=== PATIENT | female | born 1930 | race Caucasian/White ===

== ENCOUNTER 2017-03-09 03:59 | Observation (INO) ==
[2017-03-09] MEDS ORDERED: 0.9 % Sodium Chloride 1,000 ML IVC ONE (04:13)
[2017-03-09] MEDS ORDERED: Ondansetron 4 MG/2 ML VIAL IVP ONE (04:13)
[2017-03-09] MEDS ORDERED: *HR* Morphine 2 MG/ML SYRINGE IVP ONE (04:13)
--- NOTE | 2017-03-09 04:16 | Emergency Department Note ---
Disposition Clinical Impression: Intractable vomiting with nausea Qualifiers: Vomiting type: unspecified Qualified Code(s): R11.2 - Nausea with vomiting, unspecified Pneumonia Qualifiers: Pneumonia type: aspiration pneumonia Aspiration pneumonia type: due to vomit Laterality: bilateral Lung location: unspecified part of lung Qualified Code(s) : J69.0 - Pneumonitis due to inhalation of food and vomit Disposition: Admitted As Inpatient Condition: Good Referrals: NO,PCP [Primary Care Provider] - Forms: ED Satisfaction Letter Time of Disposition: 05:15 Nausea/Vomiting/Diarrhea HPI - General Chief complaint: ED Nausea/Vomiting/Diarrhea Stated complaint: vomiting Source: patient Limitations: no limitations - History of Present Illness HPI Narrative: Patient presents to the emergency department from home via EMS secondary to vomiting. She states that she began to have emesis approximately 5-6 hours ago without inciting incident or injury. She states she has had multiple episodes of emesis since. She denies hematemesis. She states that she had some mild lower abdominal pain following one episode of emesis but that has since resolved. Denies pain currently. She denies diarrhea. She had a bowel movement yesterday. She denies fever or chills. She denies chest pain shortness of breath. She denies urinary symptoms. She denies known sick contacts Pt Subjective Complaint: nausea, vomiting - Related Data Home Medications Medication Instructions Recorded Confirmed Cholecalciferol (Vitamin D3) 1,000 unit PO DAILY 04/24/15 01/17/17 [Vitamin D] Diltiazem CD (24hr) [Cardizem CD] 180 mg PO BID 04/24/15 01/17/17 Gabapentin [Neurontin] 800 mg PO TID 04/24/15 01/17/17 HYDROcodone/Acet 5/325 mg [[place] 1 tab PO Q6HR 04/24/15 01/17/17 5-325 mg] LORazepam [Ativan] 1 mg PO TID 04/24/15 01/17/17 Levothyroxine Sodium [Synthroid] 75 mcg PO DAILY 04/24/15 01/17/17 Omeprazole [PriLOSEC] 40 mg PO DAILY 04/24/15 01/17/17 Simvastatin [Zocor] 40 mg PO HS 04/24/15 01/17/17 Furosemide [Lasix] 40 mg PO DAILY 06/28/15 01/17/17 Warfarin [Coumadin] 2 mg PO 1800 06/28/15 01/17/17 Previous Rx's Medication Instructions Recorded Polyethylene Glycol 3350 [MiraLAX] 17 gm PO DAILY #30 powd.pack 06/14/15 predniSONE [PredniSONE] 10 mg PO DAILY #20 tablet 01/17/17 Allergies Allergy/AdvReac Type Severity Reaction Status Date / Time clarithromycin [From Biaxin] Allergy Hives Verified 01/17/17 11:05 Iodinated Contrast- Oral and Allergy Hives Verified 01/17/17 11:05 IV Dye [Iodinated Contrast Media - IV Dye] metoclopramide Allergy Difficulty Verified 01/17/17 11:05 Breathing Penicillins Allergy Hives Verified 01/17/17 11:05 phenazopyridine Allergy Rash Verified 01/17/17 11:20 [From Pyridium] Sulfa (Sulfonamide Allergy See Verified 01/17/17 11:05 Antibiotics) Comments sulfamethoxazole Allergy Hives Verified 01/17/17 11:05 [From Bactrim] trimethoprim [From Bactrim] Allergy Hives Verified 01/17/17 11:05 Constitutional: Denies: fever, chills, weakness Eyes: Denies: vision change ENT ED: Denies: ear pain Cardiovascular: Denies: chest pain, palpitations, dyspnea on exertion, edema, syncope Respiratory: Denies: cough, dyspnea Gastrointestinal: Reports: as per HPI Genitourinary: Denies: urgency, dysuria, frequency Musculoskeletal: Denies: back pain Integumentary: Denies: rash, abrasion Neurological: Denies: headache, weakness, numbness, paresthesias Endocrine: Denies: fatigue Past Medical History - Past Medical History Medical history: Reports: cancer, DVT, diabetes, GERD, hyperlipidemia, hypertension, thyroid disease Surgical history: Reports: appendectomy, cataract (Lens replacement), hysterectomy, knee replacement (Bilateral), thyroidectomy, other (Exploratory kidney surgery, tonsillectomy/adenoidectomy) Psychiatric history: Reports: anxiety, depression VP INTEGRITY history: Reports: no VP INTEGRITY history - Social History Smoking Status: Never smoker Smokeless Tobacco Status: No Alcohol use: Reports: none Drug use: Reports: none Physical Exam - General Limitations: no limitations General appearance: alert, in no apparent distress (Resting comfortably cooperative and interactive and pleasant) - Head Head exam: atraumatic - Eye Eye exam: Present: normal appearance, PERRL. Absent: scleral icterus, conjunctival injection - ENT ENT exam: mucous membranes dry, TM's normal bilaterally - Neck Neck exam: Present: normal inspection. Absent: meningismus - Respiratory Respiratory exam: Present: normal lung sounds bilaterally - Cardiovascular Cardiovascular exam: Present: regular rate, normal rhythm, normal heart sounds - Abdominal Exam Abdominal exam: Present: soft, Non-Tender, distention, hypoactive bowel sounds ( Bowel sounds are present though high-pitched) - Extremities Exam Extremities exam: Present: normal inspection, full ROM, normal capillary refill. Absent: tenderness, calf tenderness - Back Exam Back exam: Present: normal inspection. Absent: tenderness, CVA tenderness (R), CVA tenderness (L) - Neurological Exam Neurological exam: Present: alert, oriented X3 - Psychiatric Psychiatric exam: Present: normal affect, normal mood - Skin Skin exam: Present: warm, dry, intact, normal color. Absent: rash Course Vital Signs Temperature 98.2 F 03/09/17 04:02 Pulse Rate 86 03/09/17 04:02 Respiratory Rate 18 03/09/17 04:02 Blood Pressure 129/74 03/09/17 04:02 O2 Sat by Pulse Oximetry 94 03/09/17 04:02 Temperature 98.2 F 03/09/17 04:02 Pulse Rate 85 03/09/17 04:57 Respiratory Rate 22 03/09/17 04:57 Blood Pressure 152/59 03/09/17 04:57 O2 Sat by Pulse Oximetry 93 03/09/17 04:57 Oxygen Delivery Oxygen Delivery Room Air Nausea/Vomiting/Diarrhea - Lab Data Lab results reviewed: Yes I reviewed the patient's lab results. Result diagrams: 03/09/17 04:20 03/09/17 04:20 Lab Results 03/09/17 03/09/17 03/09/17 Range/Units 04:20 04:20 04:20 WBC 12.0 H (4.3-11.1) K/mcL RBC 4.10 (3.82-4.97) M/mcL Hgb 12.2 (11.5-15.4) g/dL Hct 38.2 (35.3-44.9) % MCV 93.2 (83.0-100.0) fL MCH 29.8 (28.0-33.3) pg MCHC 31.9 (31.6-35.5) g/dL RDW 13.4 (11.5-14.5) % Plt Count 226 (140-400) K/mcL MPV 10.4 (9.4-12.4) fL Immature Gran % 0.3 (0-4) % Seg Neutrophils % 84.9 % Lymphocytes % 5.7 % Monocytes % 7.7 % Eosinophils % 1.1 % Basophils % 0.3 % Neutrophils # 10.2 H (1.6-8.9) K/mcL Lymphocytes # 0.7 (0.6-4.6) K/mcL Monocytes # 0.9 (0.0-1.3) K/mcL Eosinophils # 0.1 (0.0-0.6) K/mcL Basophils # 0.0 (0.0-0.2) K/mcL PT (9.4-12.1) Seconds INR APTT (26.0-36.0) Seconds Sodium 144 (136-145) mEq/L Potassium 3.5 (3.5-4.5) mEq/L Chloride 106 (98-109) mEq/L Carbon Dioxide 24 (19-29) mEq/L BUN 18 (7-20) mg/dL Creatinine 0.82 (0.57-1.11) mg/dL Est GFR ( Amer) > 60 (> 60) Est GFR (Non-Af Amer) > 60 (> 60) BUN/Creatinine Ratio 22 (6-26) Glucose 171 H (70-99) mg/dL Calculated Osmolality 304 H (280-300) Calcium 9.6 (8.6-10.8) mg/dL Total Bilirubin 0.4 (0.2-1.2) mg/dL AST 27 (5-34) Units/L ALT 21 (0-55) Units/L Alkaline Phosphatase 95 (38-126) Units/L Troponin I 0.02 (0-0.03) ng/mL Serum Total Protein 6.6 (6.0-8.3) g/dL Albumin 3.7 (3.5-5.0) g/dL Globulin 2.9 (2.4-3.5) g/dL Albumin/Globulin Ratio 1.3 (1.1-2.2) Lipase 20 (8-78) Units/L 03/09/17 Range/Units 04:20 WBC (4.3-11.1) K/mcL RBC (3.82-4.97) M/mcL Hgb (11.5-15.4) g/dL Hct (35.3-44.9) % MCV (83.0-100.0) fL MCH (28.0-33.3) pg MCHC (31.6-35.5) g/dL RDW (11.5-14.5) % Plt Count (140-400) K/mcL MPV (9.4-12.4) fL Immature Gran % (0-4) % Seg Neutrophils % % Lymphocytes % % Monocytes % % Eosinophils % % Basophils % % Neutrophils # (1.6-8.9) K/mcL Lymphocytes # (0.6-4.6) K/mcL Monocytes # (0.0-1.3) K/mcL Eosinophils # (0.0-0.6) K/mcL Basophils # (0.0-0.2) K/mcL PT 20.2 H (9.4-12.1) Seconds INR 1.8 APTT 39.0 H (26.0-36.0) Seconds Sodium (136-145) mEq/L Potassium (3.5-4.5) mEq/L Chloride (98-109) mEq/L Carbon Dioxide (19-29) mEq/L BUN (7-20) mg/dL Creatinine (0.57-1.11) mg/dL Est GFR ( Amer) (> 60) Est GFR (Non-Af Amer) (> 60) BUN/Creatinine Ratio (6-26) Glucose (70-99) mg/dL Calculated Osmolality (280-300) Calcium (8.6-10.8) mg/dL Total Bilirubin (0.2-1.2) mg/dL AST (5-34) Units/L ALT (0-55) Units/L Alkaline Phosphatase (38-126) Units/L Troponin I (0-0.03) ng/mL Serum Total Protein (6.0-8.3) g/dL Albumin (3.5-5.0) g/dL Globulin (2.4-3.5) g/dL Albumin/Globulin Ratio (1.1-2.2) Lipase (8-78) Units/L ITS Impressions Abdomen/Pelvis CT 03/09/17 04:14 IMPRESSION: Multiple dilated loops of small bowel in the mid abdomen with wall thickening and mesenteric hyperemia suggesting an acute enteritis. No evidence of transition point to suggest a bowel obstruction. Diverticulosis without CT evidence acute diverticulitis. Patchy ground-glass and tree-in-bud opacities noted in both lung bases suggesting an acute infectious/ inflammatory processes atypical pneumonia. Aspiration pneumonia is differential. Pleura slight hydroureter D/ / Marvin Grande MD / Marvin Grande MD Interpreting Provider: Marvin Grande MD - Radiology Data Radiology results reviewed: Yes I reviewed the patient's radiology results. - EKG Data EKG attestation: Yes I reviewed and interpreted this EKG. EKG shows normal: sinus rhythm (Normal sinus rhythm with a rate of 84. Right axis deviation. There is artifact on this EKG without evidence of acute ST segment or T-wave changes)
[2017-03-09 04:27] LABS: Basophils % 0.3 %; Eosinophils # 0.1 K/mcL (0.0-0.6); Eosinophils % 1.1 %; Hematocrit 38.2 % (35.3-44.9); Hemoglobin 12.2 g/dL (11.5-15.4); Immature Granulocytes % 0.3 % (0-4); Lymphocytes # 0.7 K/mcL (0.6-4.6); Lymphocytes % 5.7 %; Mean Corpuscular HGB Conc 31.9 g/dL (31.6-35.5); Mean Corpuscular Hemoglobin 29.8 pg (28.0-33.3); Mean Corpuscular Volume 93.2 fL (83.0-100.0); Mean Platelet Volume 10.4 fL (9.4-12.4); Monocytes # 0.9 K/mcL (0.0-1.3); Monocytes % 7.7 %; Neutrophils # 10.2 K/mcL (1.6-8.9); Platelet Count 226 K/mcL (140-400); Red Cell Distribution Width 13.4 % (11.5-14.5); Segmented Neutrophils % 84.9 %
[2017-03-09 04:31] LABS: INR 1.8; Prothrombin Time 20.2 Seconds (9.4-12.1)
[2017-03-09 04:44] LABS: Alanine Aminotransferase 21 Units/L (0-55); Albumin 3.7 g/dL (3.5-5.0); Albumin/Globulin Ratio 1.3 (1.1-2.2); Alkaline Phosphatase 95 Units/L (38-126); Aspartate Amino Transferase 27 Units/L (5-34); BUN/Creatinine Ratio 22 (6-26); Bilirubin,Total 0.4 mg/dL (0.2-1.2); Blood Urea Nitrogen 18 mg/dL (7-20); Calcium 9.6 mg/dL (8.6-10.8); Carbon Dioxide 24 mEq/L (19-29); Chloride 106 mEq/L (98-109); Globulin 2.9 g/dL (2.4-3.5); Glucose 171 mg/dL (70-99); Lipase 20 Units/L (8-78); Osmolality,Calculated 304 (280-300); Potassium 3.5 mEq/L (3.5-4.5); Sodium 144 mEq/L (136-145); Total Protein 6.6 g/dL (6.0-8.3); eGFR For African Americans > 60 (> 60); eGFR For Non-African Americans > 60 (> 60)
[2017-03-09] MEDS ORDERED: Ondansetron 4 MG/2 ML VIAL IVP PRN ×2 (05:20→14:11)
[2017-03-09] MEDS: 0.9 % Sodium Chloride 1,000 ML IVC SCH (06:52)
[2017-03-09 08:27] LABS: Bilirubin,Urine Negative (Negative); Blood,Urine Moderate (Negative); Clarity,Urine Slightly Cloudy (Clear); Glucose,Urine (UA) Normal (Normal); Ketones,Urine 15 mg/dL (Negative); Leukocyte Esterase,Urine Trace (Negative); Nitrite,Urine Positive (Negative); Protein,Urine Negative (Neg-Trace); Specific Gravity,Urine 1.015 (1.010-1.025); Urobilinogen,Urine Normal (Normal)
[2017-03-09] MEDS ORDERED: Acetaminophen 325 MG TABLET PO PRN (08:31)
[2017-03-09 08:40] LABS: Color,Urine Light Yellow (Yellow)
[2017-03-09 08:50] LABS: RBC,Urine 0-3 per hpf (0-3)
[2017-03-09 08:51] LABS: Bacteria,Urine Moderate per hpf (None-Few); Squamous Epithelial Cell,Urine Few per lpf (None-Few)
[2017-03-09] MEDS ORDERED: Levofloxacin 750 MG/150 ML 750 MG/150 ML BAG IVPB SCH (09:00)
[2017-03-09] MEDS: Cholecalciferol (D-3) 1,000 UNIT TABLET PO SCH (09:06)
[2017-03-09] MEDS: Gabapentin 400 MG CAPSULE PO SCH ×3 (09:06→21:35)
[2017-03-09] MEDS: Diltiazem CD (24hr) 180 MG CAPSULE PO SCH ×2 (09:07→21:35)
[2017-03-09] MEDS: predniSONE 10 MG TABLET PO SCH (09:07)
[2017-03-09] MEDS: Clindamycin 600 MG/50 ML 600 MG/50 ML IV.SOLN IVPB SCH ×2 (09:07→15:02)
[2017-03-09] MEDS: Furosemide 40 MG TABLET PO SCH (09:07)
--- NOTE | 2017-03-09 12:36 | Internal Med History&Physical ---
Date of Encounter: 03/09/17 Time of Encounter: 12:10 Assessment and Plan (1) Intractable vomiting with nausea Current visit: Yes Status: Acute She has been started on IV fluids and antiemetics. Suspect viral gastroenteritis. Will do further workup as needed. Qualifiers: Vomiting type: unspecified Qualified Code(s): R11.2 - Nausea with vomiting , unspecified (2) Pneumonia Current visit: Yes Status: Acute She has been ordered Levaquin and clindamycin. Will add lactobacillus. Qualifiers: Pneumonia type: aspiration pneumonia Aspiration pneumonia type: due to vomit Laterality: bilateral Lung location: unspecified part of lung Qualified Code(s): J69.0 - Pneumonitis due to inhalation of food and vomit (3) Hypothyroidism Current visit: No Status: Chronic We will check TSH in a.m. Qualifiers: Hypothyroidism type: unspecified Qualified Code(s): E03.9 - Hypothyroidism , unspecified Internal Medicine - H&P: HPI Chief complaint: Vomiting and abdominal pain Admitted From: Home Plans for Post Hospital Care: Home History of present illness: Ms. Edmonds is a 87 year old female who came to emergency room stating she had onset of vomiting approximately 11 AM March 08. She states she vomited 8-10 times without visible hematemesis. She did have some right mid and lower abdominal pain develop after several episodes of vomiting. She reports no diarrhea,fever or other infectious symptoms. She came to emergency room and was felt to have possible aspiration pneumonia in addition to vomiting. She was admitted to [facility] floor for ongoing care needs. She states she has vomited one time since arriving on [facility] floor. Her GI history is negative for known disorders of her liver gallbladder or exocrine pancreas. She states she has a daughter at home who also has had vomiting in the past few hours. Patient had colonoscopy approximately 2011 which was unremarkable. He states her abdominal pain has lessened. Past Med Surg Social Fam HX - Past Medical History Medical history: cancer, DVT, diabetes, GERD, hyperlipidemia, hypertension, thyroid disease Psychiatric history: anxiety, depression - Past Surgical History Surgical History: appendectomy, cataract, hysterectomy, knee replacement, thyroidectomy, other - Social History Smoking Status: Never smoker Smokeless Tobacco Status: No Alcohol use: none Drug use: none Internal Medicine - H&P: Meds Cholecalciferol (Vitamin D3) [Vitamin D] 1,000 unit PO DAILY 04/24/15 [History] Diltiazem CD (24hr) [Cardizem CD] 180 mg PO BID 04/24/15 [History] Gabapentin [Neurontin] 800 mg PO TID 04/24/15 [History] HYDROcodone/Acet 5/325 mg [[place] 5-325 mg] 1 tab PO Q6HR 04/24/15 [History] LORazepam [Ativan] 1 mg PO TID 04/24/15 [History] Levothyroxine Sodium [Synthroid] 75 mcg PO DAILY 04/24/15 [History] Omeprazole [PriLOSEC] 40 mg PO DAILY 04/24/15 [History] Simvastatin [Zocor] 40 mg PO HS 04/24/15 [History] Polyethylene Glycol 3350 [MiraLAX] 17 gm PO DAILY #30 powd.pack 06/14/15 [Rx] Furosemide [Lasix] 40 mg PO DAILY 06/28/15 [History] Warfarin [Coumadin] 2 mg PO 1800 06/28/15 [History] predniSONE [PredniSONE] 10 mg PO DAILY #20 tablet 01/17/17 [Rx] Allergies clarithromycin [From Biaxin] Allergy (Verified 01/17/17 11:05) Hives Iodinated Contrast- Oral and IV Dye [Iodinated Contrast Media - IV Dye] Allergy (Verified 01/17/17 11:05) Hives metoclopramide Allergy (Verified 01/17/17 11:05) Difficulty Breathing Penicillins Allergy (Verified 01/17/17 11:05) Hives phenazopyridine [From Pyridium] Allergy (Verified 01/17/17 11:20) Rash Sulfa (Sulfonamide Antibiotics) Allergy (Verified 01/17/17 11:05) See Comments sulfamethoxazole [From Bactrim] Allergy (Verified 01/17/17 11:05) Hives trimethoprim [From Bactrim] Allergy (Verified 01/17/17 11:05) Hives All Systems PM: A 10-system review of systems was performed and is negative for pertinent findings except as documented above in the HPI. Review of systems: Gen.: Her weight has been stable at approximately 80 kg since the May 2015 hospitalization. 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 She has not had pulmonary embolism. She has not had MT or heart failure. She had a stress test was 2002 which showed no evidence of ischemia. Respiratory: She is a lifelong nonsmoker and has no known chronic lung disease GI: As per history of present illness : She denies hematuria dysuria or kidney stones Neurologic: No history of large distribution strokes or seizures Endocrine: She has DM 2 that is diet controlled. She had thyroid cancer several years ago and has been treated with resultant hypothyroidism. She has hyperlipidemia. Hematology/oncology: She had thyroid cancer as mentioned no other internal malignancies. She had anemia in the past and received iron dextran infusions. 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 She had osteopenia on DEXA scan January 2009. She has had bilateral TKR. - Constitutional Vitals: Temp Pulse Resp BP Pulse Ox 99.9 F H 87 16 124/53 94 03/09/17 10:21 03/09/17 10:21 03/09/17 10:21 03/09/17 10:21 03/09/17 10:21 Exam: Gen.: She is well-developed well-nourished female lying in bed and appears in minimal distress at present time. She does complain of some nausea. HEENT: Head is atraumatic and normocephalic. Eyes: EOMI. There is no scleral icterus. Mouth: Mucosa is moist. Neck: Supple and nontender. There is no thyromegaly or adenopathy noted. Heart: Regular without murmurs gallops or ectopics Lungs: No wheezes or crackles are heard. She has equivocal egophony in the left base Abdomen: The abdomen is nontender to palpation. Bowel sounds are present but diminished. No masses or guarding are noted. Extremities: She has 0 to trace edema of the right lower leg and dorsum of the foot and trace to 1+ edema of the left lower leg and dorsum of the foot. She has DJD changes of her hands. Neurologic: Mental status: She is talkative and a good historian. Cranial nerves: Smile is symmetric. Forehead wrinkles bilaterally. Tongue protrudes midline. EOMI. Motor: There is no pronator drift. Cerebellar: Finger to nose is intact bilaterally. Skin: Warm and dry Internal Med - H&P Results - Labs CBC & Chem 7: 03/09/17 04:20 03/09/17 04:20 Labs: Urine 03/09/17 Range/Units 08:20 Urine Color Light Yellow (Yellow) Urine Clarity Slightly Cloudy A (Clear) Urine pH 7.0 (5.0-8.0) pH Units Ur Specific [place] 1.015 (1.010-1.025) Urine Protein Negative (Neg-Trace) mg/dL Urine Glucose (UA) Normal (Normal) mg/dL - VTE Reasons for not Prescribing Prophylaxis: Not indicated-Anticoagulated or INR therapeutic
[2017-03-09] MEDS: 0.45 % Sodium Chloride w/KCl 20 MEQ/1,000 ML MLS IVC SCH (15:02)
[2017-03-09] MEDS ORDERED: *HR* Warfarin 2 MG TABLET PO SCH (18:00)
[2017-03-10] MEDS: Clindamycin 600 MG/50 ML 600 MG/50 ML IV.SOLN IVPB SCH ×3 (00:23→16:55)
[2017-03-10] MEDS: *HR* LORazepam 1 MG TABLET PO PRN (01:42)
[2017-03-10] MEDS: *HR* HYDROcodone/Acet 5/325 mg TABLET PO PRN ×3 (01:46→18:01)
[2017-03-10] MEDS: 0.45 % Sodium Chloride w/KCl 20 MEQ/1,000 ML MLS IVC SCH ×3 (03:20→18:54)
[2017-03-10] MEDS: 0.9 % Sodium Chloride 1,000 ML IVC SCH (03:37)
[2017-03-10 04:11] LABS: Basophils % 0.2 %; Eosinophils % 0.3 %; Hematocrit 28.7 % (35.3-44.9); Hemoglobin 9.2 g/dL (11.5-15.4); Immature Granulocytes % 0.4 % (0-4); Lymphocytes # 1.2 K/mcL (0.6-4.6); Lymphocytes % 10.6 %; Mean Corpuscular HGB Conc 32.1 g/dL (31.6-35.5); Mean Corpuscular Hemoglobin 29.9 pg (28.0-33.3); Mean Corpuscular Volume 93.2 fL (83.0-100.0); Mean Platelet Volume 10.5 fL (9.4-12.4); Monocytes # 1.2 K/mcL (0.0-1.3); Monocytes % 10.2 %; Neutrophils # 8.9 K/mcL (1.6-8.9); Platelet Count 166 K/mcL (140-400); Red Blood Count 3.08 M/mcL (3.82-4.97); Red Cell Distribution Width 13.7 % (11.5-14.5); Segmented Neutrophils % 78.3 %
[2017-03-10 04:17] LABS: INR 3.3; Prothrombin Time 36.6 Seconds (9.4-12.1)
[2017-03-10 04:29] LABS: BUN/Creatinine Ratio 22 (6-26); Blood Urea Nitrogen 16 mg/dL (7-20); Calcium 8.2 mg/dL (8.6-10.8); Carbon Dioxide 24 mEq/L (19-29); Chloride 106 mEq/L (98-109); Glucose 113 mg/dL (70-99); Magnesium 1.8 mg/dL (1.6-2.6); Osmolality,Calculated 288 (280-300); Potassium 3.1 mEq/L (3.5-4.5); Sodium 138 mEq/L (136-145); eGFR For African Americans > 60 (> 60); eGFR For Non-African Americans > 60 (> 60)
[2017-03-10] MEDS: Furosemide 40 MG TABLET PO SCH (09:30)
[2017-03-10] MEDS: predniSONE 10 MG TABLET PO SCH (09:30)
[2017-03-10] MEDS: Diltiazem CD (24hr) 180 MG CAPSULE PO SCH ×2 (09:30→21:35)
[2017-03-10] MEDS: Gabapentin 400 MG CAPSULE PO SCH ×3 (09:31→21:36)
[2017-03-10] MEDS: Cholecalciferol (D-3) 1,000 UNIT TABLET PO SCH (09:31)
--- NOTE | 2017-03-10 09:46 | Internal Med Progress Note ---
Date of Encounter: 03/10/17 Time of Encounter: 09:35 - Assessment and plan (1) Intractable vomiting with nausea Current Visit: Yes Status: Acute Assessment and plan: March 10. Improved. Will advance diet. Anticipate discharge home tomorrow. Qualifiers: Vomiting type: unspecified Qualified Code(s): R11.2 - Nausea with vomiting , unspecified (2) Pneumonia Current Visit: Yes Status: Acute Assessment and plan: March 10. Continue Levaquin, clindamycin, and lactobacillus. Qualifiers: Pneumonia type: aspiration pneumonia Aspiration pneumonia type: due to vomit Laterality: bilateral Lung location: unspecified part of lung Qualified Code(s): J69.0 - Pneumonitis due to inhalation of food and vomit (3) Hypothyroidism Current Visit: No Status: Chronic Assessment and plan: March 10. TSH was normal. Continue present dose Synthroid. Qualifiers: Hypothyroidism type: unspecified Qualified Code(s): E03.9 - Hypothyroidism , unspecified - Subjective Interval history: March 10. She has no new complaints and feels better. She states her vomiting has resolved. - Constitutional Vitals: Temp Pulse Resp BP Pulse Ox 97.9 F 60 18 104/52 93 03/10/17 06:30 03/10/17 06:30 03/10/17 06:30 03/10/17 06:30 03/10/17 06:30 Exam: She is resting comfortably in bed. Her affect is bright and cheerful. I reviewed her medications and lab results. Internal Medicine: Result - Labs CBC & Chem 7: 03/10/17 03:48 03/10/17 03:48 Labs: Short CBC 03/10/17 Range/Units 03:48 WBC 11.3 H (4.3-11.1) K/mcL Hgb 9.2 L D (11.5-15.4) g/dL Hct 28.7 L (35.3-44.9) % Plt Count 166 (140-400) K/mcL Neutrophils # 8.9 (1.6-8.9) K/mcL BMP 03/10/17 03:48 Sodium 138 Potassium 3.1 L Chloride 106 Carbon Dioxide 24 BUN 16 Creatinine 0.72 Glucose 113 H Calcium 8.2 L - ABG Interpretation ABG results: PT/INR, D-dimer PT 36.6 Seconds (9.4-12.1) H D 03/10/17 03:48 - VTE Reasons for not Prescribing Prophylaxis: Not indicated-Anticoagulated or INR therapeutic Consult Discharge Plan - Plan Referrals: NO,PCP [Primary Care Provider] - 1 week
--- NOTE | 2017-03-10 18:55 | Electrocardiograph Report ---
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
[2017-03-11] MEDS: *HR* LORazepam 1 MG TABLET PO PRN
[2017-03-11 05:45] LABS: Basophils % 0.3 %; Eosinophils # 0.3 K/mcL (0.0-0.6); Hematocrit 29.3 % (35.3-44.9); Hemoglobin 9.4 g/dL (11.5-15.4); Immature Granulocytes % 0.6 % (0-4); Lymphocytes # 1.3 K/mcL (0.6-4.6); Lymphocytes % 12.4 %; Mean Corpuscular HGB Conc 32.1 g/dL (31.6-35.5); Mean Corpuscular Hemoglobin 29.8 pg (28.0-33.3); Mean Platelet Volume 10.7 fL (9.4-12.4); Monocytes # 1.2 K/mcL (0.0-1.3); Monocytes % 10.9 %; Neutrophils # 7.7 K/mcL (1.6-8.9); Platelet Count 183 K/mcL (140-400); Red Blood Count 3.15 M/mcL (3.82-4.97); Red Cell Distribution Width 13.5 % (11.5-14.5); Segmented Neutrophils % 72.8 %
[2017-03-11 05:50] LABS: INR 3.3; Prothrombin Time 36.7 Seconds (9.4-12.1)
[2017-03-11 06:02] LABS: BUN/Creatinine Ratio 16 (6-26); Blood Urea Nitrogen 11 mg/dL (7-20); Calcium 8.8 mg/dL (8.6-10.8); Carbon Dioxide 23 mEq/L (19-29); Chloride 108 mEq/L (98-109); Glucose 99 mg/dL (70-99); Osmolality,Calculated 291 (280-300); Potassium 3.6 mEq/L (3.5-4.5); Sodium 141 mEq/L (136-145); eGFR For African Americans > 60 (> 60); eGFR For Non-African Americans > 60 (> 60)
[2017-03-11 06:34] VITALS: BP 140/64
[2017-03-11] MEDS: Clindamycin 600 MG/50 ML 600 MG/50 ML IV.SOLN IVPB SCH ×2 (08:50)
[2017-03-11] MEDS: Gabapentin 400 MG CAPSULE PO SCH (08:53)
[2017-03-11] MEDS: Cholecalciferol (D-3) 1,000 UNIT TABLET PO SCH (08:54)
[2017-03-11] MEDS: Diltiazem CD (24hr) 180 MG CAPSULE PO SCH (08:54)
[2017-03-11] MEDS: Furosemide 40 MG TABLET PO SCH (08:54)
[2017-03-11] MEDS: predniSONE 10 MG TABLET PO SCH (08:54)
[2017-03-11] MEDS ORDERED: Levofloxacin 750 MG/150 ML 750 MG/150 ML BAG IVPB SCH (09:00)
--- NOTE | 2017-03-11 09:49 | Discharge Summary ---
Date of Encounter: 03/11/17 Time of Encounter: 09:40 - Discharge Diagnosis (1) Intractable vomiting with nausea Priority: Primary Status: Acute Qualifiers: Vomiting type: unspecified Qualified Code(s): R11.2 - Nausea with vomiting , unspecified (2) Pneumonia Priority: Secondary Status: Acute Qualifiers: Pneumonia type: aspiration pneumonia Aspiration pneumonia type: due to vomit Laterality: bilateral Lung location: unspecified part of lung Qualified Code(s): J69.0 - Pneumonitis due to inhalation of food and vomit (3) Hypothyroidism Priority: Secondary Status: Chronic Qualifiers: Hypothyroidism type: unspecified Qualified Code(s): E03.9 - Hypothyroidism , unspecified - Discharge Medications Prescriptions: Lactobacillus [Culturelle] 1 each PO BID #6 cap.sprink levoFLOXacin [Levaquin] 500 mg PO DAILY #3 tablet Home Medications: Cholecalciferol (Vitamin D3) [Vitamin D] 1,000 unit PO DAILY 04/24/15 [History] Diltiazem CD (24hr) [Cardizem CD] 180 mg PO BID 04/24/15 [History] Gabapentin [Neurontin] 800 mg PO TID 04/24/15 [History] HYDROcodone/Acet 5/325 mg [[place] 5-325 mg] 1 tab PO Q6HR 04/24/15 [History] LORazepam [Ativan] 1 mg PO TID 04/24/15 [History] Levothyroxine Sodium [Synthroid] 75 mcg PO DAILY 04/24/15 [History] Omeprazole [PriLOSEC] 40 mg PO DAILY 04/24/15 [History] Simvastatin [Zocor] 40 mg PO HS 04/24/15 [History] Polyethylene Glycol 3350 [MiraLAX] 17 gm PO DAILY #30 powd.pack 06/14/15 [Rx] Furosemide [Lasix] 40 mg PO DAILY 06/28/15 [History] Warfarin [Coumadin] 2 mg PO 1800 06/28/15 [History] predniSONE [PredniSONE] 10 mg PO DAILY #20 tablet 01/17/17 [Rx] Lactobacillus [Culturelle] 1 each PO BID #6 cap.sprink 03/11/17 [Rx] levoFLOXacin [Levaquin] 500 mg PO DAILY #3 tablet 03/11/17 [Rx] Allergies/Adverse Reactions: Allergies clarithromycin [From Biaxin] Allergy (Verified 01/17/17 11:05) Hives Iodinated Contrast- Oral and IV Dye [Iodinated Contrast Media - IV Dye] Allergy (Verified 01/17/17 11:05) Hives metoclopramide Allergy (Verified 01/17/17 11:05) Difficulty Breathing Penicillins Allergy (Verified 01/17/17 11:05) Hives phenazopyridine [From Pyridium] Allergy (Verified 01/17/17 11:20) Rash Sulfa (Sulfonamide Antibiotics) Allergy (Verified 01/17/17 11:05) See Comments sulfamethoxazole [From Bactrim] Allergy (Verified 01/17/17 11:05) Hives trimethoprim [From Bactrim] Allergy (Verified 01/17/17 11:05) Hives Date of admission: 03/09/17 05:41 Primary care physician: Marquis Woodward D.O. - Patient Status Disposition: Home, Self-Care Condition: Good Functional capacity at discharge: uses cane/walker Overall status at discharge: patient is progressing back to baseline - Discharge Instructions Follow Up With: Marquis Woodward DO [Non-Partnered Physician] - 1 week - Diet and Activity Activity: ambulate only with your walker Diet: advance to your usual diet Hospital course: Ms. Edmonds is a 87 year old female who came to emergency room stating she had onset of vomiting approximately 11 AM March 08. She states she vomited 8-10 times without visible hematemesis. She did have some right mid and lower abdominal pain develop after several episodes of vomiting. She reports no diarrhea,fever or other infectious symptoms. She came to emergency room and was felt to have possible aspiration pneumonia in addition to vomiting. She was admitted to [facility] for ongoing care needs. Initial orders were written by the emergency room physician. I saw her on March 09 and performed a history and physical. She was started empirically on IV Levaquin and clindamycin. IV fluids and antiemetics were also given. Her vomiting resolved after the first 24 hours of hospitalization. She was able to tolerate adequate amount of food and fluid intake. Leukocytosis and left shift resolved by the day of discharge. Urine culture return showing Klebsiella pneumonia. She will be continued on Levaquin and probiotic for 3 additional days. TSH returned normal at 0.770. Hemoglobin decreased slightly to 9.4 with hydration. Her PCP can monitor this. She will follow with Dr. Woodward within 1 week. - Time Spent with Patient Total time spent providing and/or coordinating discharge services: - Constitutional Vitals: Temp Pulse Resp BP Pulse Ox 98.7 F 78 20 140/64 92 03/11/17 06:31 03/11/17 06:31 03/11/17 06:31 03/11/17 06:31 03/11/17 06:31 - VTE Reasons for not Prescribing Prophylaxis: Not indicated-Anticoagulated or INR therapeutic
--- NOTE | 2017-03-11 10:36 | Physician Discharge Referral ---
Home Health/Hosp Referral Info Transfer to: Home Health Attending Provider: Nam Provider in Charge Post Discharge: PCP (Crissy) - Diagnosis (1) Intractable vomiting with nausea Priority: Primary Status: Resolved (2) Pneumonia Priority: Secondary Status: Acute (3) Hypothyroidism Priority: Secondary Status: Chronic - Respiratory Orders Smoking Cessation: Smoking cessation has been advised. For more information, call the [place] Tobacco Quit Line at 7-533-TXEH-NOW. - Diet/Nutrition Diet/Nutrition Orders: Regular - Activity Activity Orders: Ambulate - Services Needed Following services are medically necessary services: Nursing, Home Health Aide, Physical Therapy, Occupational Therapy - Transfer Medications Prescriptions: Lactobacillus [Culturelle] 1 each PO BID #6 cap.sprink levoFLOXacin [Levaquin] 500 mg PO DAILY #3 tablet Home Medications: Cholecalciferol (Vitamin D3) [Vitamin D] 1,000 unit PO DAILY 04/24/15 [History] Diltiazem CD (24hr) [Cardizem CD] 180 mg PO BID 04/24/15 [History] Gabapentin [Neurontin] 800 mg PO TID 04/24/15 [History] HYDROcodone/Acet 5/325 mg [[place] 5-325 mg] 1 tab PO Q6HR 04/24/15 [History] LORazepam [Ativan] 1 mg PO TID 04/24/15 [History] Levothyroxine Sodium [Synthroid] 75 mcg PO DAILY 04/24/15 [History] Omeprazole [PriLOSEC] 40 mg PO DAILY 04/24/15 [History] Simvastatin [Zocor] 40 mg PO HS 04/24/15 [History] Polyethylene Glycol 3350 [MiraLAX] 17 gm PO DAILY #30 powd.pack 06/14/15 [Rx] Furosemide [Lasix] 40 mg PO DAILY 06/28/15 [History] Warfarin [Coumadin] 2 mg PO 1800 06/28/15 [History] predniSONE [PredniSONE] 10 mg PO DAILY #20 tablet 01/17/17 [Rx] Lactobacillus [Culturelle] 1 each PO BID #6 cap.sprink 03/11/17 [Rx] levoFLOXacin [Levaquin] 500 mg PO DAILY #3 tablet 03/11/17 [Rx] Allergies/Adverse Reactions: Allergies clarithromycin [From Biaxin] Allergy (Verified 01/17/17 11:05) Hives Iodinated Contrast- Oral and IV Dye [Iodinated Contrast Media - IV Dye] Allergy (Verified 01/17/17 11:05) Hives metoclopramide Allergy (Verified 01/17/17 11:05) Difficulty Breathing Penicillins Allergy (Verified 01/17/17 11:05) Hives phenazopyridine [From Pyridium] Allergy (Verified 01/17/17 11:20) Rash Sulfa (Sulfonamide Antibiotics) Allergy (Verified 01/17/17 11:05) See Comments sulfamethoxazole [From Bactrim] Allergy (Verified 01/17/17 11:05) Hives trimethoprim [From Bactrim] Allergy (Verified 01/17/17 11:05) Hives Certification: Further, I certify that my clinical findings support that this patient is homebound (i.e. absences from home require considerable and taxing effort and are for medical reasons or buddhist services or infrequently or short duration when for other reasons) because: Homebound Reason: Leaving home requires considerable and taxing effort due to condition (weakness) Attestation: My signature below is to certify that this patient is under my care and that I, or nurse practitioner, or a physician's bankruptcy assistant working with me, has a face-to -face encounter with this patient.
== END 2017-03-11 12:10 | disposition home health service (06) ==
LOC: INPPIK 03:59 → EMEROOPIK 03:59 → INPPIK 06:05
PROVIDERS: ADMIT Internal Medicine; ATTEND Internal Medicine

== ENCOUNTER 2017-07-26 18:01 | Inpatient (IN) ==
--- NOTE | 2017-07-26 18:15 | Emergency Department Note ---
Disposition Clinical Impression: Anemia, SOB (shortness of breath) Disposition: Admitted As Inpatient Condition: Fair Referrals: Marquis Woodward DO [Primary Care Provider] - Forms: ED Satisfaction Letter Time of Disposition: 19:44 (rafael noe [facility]) SOB HPI - General Chief Complaint: ED Shortness of Breath/Dyspnea Stated Complaint: ann marie Time Seen by Provider: 07/26/17 18:04 Source: patient Mode of arrival: ambulatory Limitations: no limitations Nursing Notes Reviewed: Yes Vital Signs Reviewed: Yes - History of Present Illness Elderly female who is in cut off her pain medications that she saw somebody up in [place]. Given her pain medications and she was having an episode of chest pain chest pressure said the pain medication resolved her chest pain chest pressure patient though has been following with her family physician patient tells me then that she is having intermittent episodes chest pain chest pressure nothing seems to make them better she said the symptoms seem to get worse when her blood pressure bottoms her daughter thinks this may be being brought on by anxiety when her pressure drops she denies a fever chills lightheadedness dizziness any calf pain or tenderness noted she has a normal swelling of the lower extremities no pitting denies any rashes or lesions patient is very her history with conversation in regards to onset of symptoms when they come and go at this time patient is asymptomatic Patient denies any history of GI bleeding vaginal bleeding any vomiting of any blood or any black tarry or melanotic stools patient fell recently had her INR checked and her Coumadin was increased to 5 mg and her Cardizem was decreased by 1 dose as result patient has been seeing pain management doctor Miller Orozco is placed her on oxycodone instead of [place] which she was on previously per Dr. 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 Denies: fever, cough, wheezing, sputum production, lower extremity pain, polyuria, polydipsia, parasthesias, palpitations, hemoptysis, diaphoresis, nausea/vomiting, syncope, abdominal pain, sense of impending doom Treatment prior to arrival: none Cough present: No Sputum production: No - Related Data Home Medications Medication Instructions Recorded Confirmed Diltiazem CD (24hr) [Cardizem CD] 180 mg PO BID 04/24/15 07/26/17 Omeprazole [PriLOSEC] 40 mg PO DAILY 04/24/15 07/26/17 Simvastatin [Zocor] 40 mg PO HS 04/24/15 07/26/17 Furosemide [Lasix] 20 mg PO DAILY 06/28/15 07/26/17 Warfarin [Coumadin] 5 mg PO 1800 06/28/15 07/26/17 Cholecalciferol (D-3) [Vitamin D] 1,000 unit PO DAILY 07/26/17 07/26/17 Levothyroxine [Synthroid] 75 mcg PO DAILY 07/26/17 07/26/17 Progesterone,Micronized 30 mg PO DAILY 07/26/17 07/26/17 [Progesterone] Allergies Allergy/AdvReac Type Severity Reaction Status Date / Time clarithromycin [From Biaxin] Allergy Hives Verified 07/13/17 16:14 Iodinated Contrast- Oral and Allergy Hives Verified 07/13/17 16:14 IV Dye [Iodinated Contrast Media - IV Dye] metoclopramide Allergy Difficulty Verified 07/13/17 16:14 Breathing Penicillins Allergy Hives Verified 07/13/17 16:14 phenazopyridine Allergy Rash Verified 07/13/17 16:14 [From Pyridium] Sulfa (Sulfonamide Allergy See Verified 07/13/17 16:14 Antibiotics) Comments sulfamethoxazole Allergy Hives Verified 07/13/17 16:14 [From Bactrim] trimethoprim [From Bactrim] Allergy Hives Verified 07/13/17 16:14 All systems ED: reviewed and negative except as stated. Review of Systems: As Per HPI Constitutional: Reports: weakness. Denies: fever, chills Eyes: Denies: eye pain ENT ED: Denies: ear pain Cardiovascular: Reports: chest pain. Denies: palpitations Respiratory: Reports: dyspnea. Denies: sputum production Gastrointestinal: Denies: abdominal pain, nausea, vomiting Genitourinary: Denies: urgency Musculoskeletal: Denies: back pain Integumentary: Denies: rash Neurological: Denies: headache Psychiatric: Denies: anxiety Endocrine: Denies: fatigue Hematological/Lymphatic: Denies: easy bleeding Past Medical History - Past Medical History Attestation: Yes The following information was validated with the patient. 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 - Social History Smoking Status: Never smoker Smokeless Tobacco Status: No Alcohol use: Reports: none Drug use: Reports: none Physical Exam - General Limitations: no limitations General appearance: alert, in no apparent distress - Head Head exam: atraumatic, normocephalic, normal inspection - Eye Eye exam: Present: normal appearance, PERRL, EOMI - ENT ENT exam: normal exam, normal oropharynx, mucous membranes moist, normal external ear exam - Neck Neck exam: Present: normal inspection, full ROM, trachea midline - Chest Chest inspection: Present: normal inspection, symmetric chest wall rise - Respiratory Respiratory exam: Present: normal lung sounds bilaterally - Cardiovascular Cardiovascular exam: Present: regular rate, normal rhythm, normal heart sounds - Abdominal Exam Abdominal exam: Present: soft, Non-Tender, normal bowel sounds. Absent: mass, pulsatile mass - Expanded Upper Extremity Exam Shoulder exam: Present: normal inspection, full ROM Arm exam: Present: normal inspection, full ROM Elbow exam: Present: normal inspection, full ROM Forearm/Wrist exam: Present: normal inspection, full ROM Hand exam: Present: normal inspection, full ROM Neurosensory exam: Normal: radial nerve, ulnar nerve, median nerve Vascular exam: Normal: capillary refill, radial pulse, ulnar pulse - Expanded Lower Extremity Exam Hip/Pelvis exam: Present: normal inspection, full ROM Upper leg exam: Present: normal inspection, full ROM Knee exam: Present: normal inspection, full ROM Lower leg exam: Present: normal inspection, full ROM Ankle exam: Present: normal inspection, full ROM Foot/toe exam: Present: normal inspection, full ROM Neurovascular/Tendon exam: Present: normal capillary refill, normal fine/light touch. Absent: motor deficit, sensory deficit, tendon deficit Gait: observed and normal - Back Exam Back exam: Present: normal inspection, full ROM, other (Increased kyphosis of the thoracic spine). Absent: muscle spasm - Neurological Exam Neurological exam: Present: alert, oriented X3, CN II-XII intact - Psychiatric Psychiatric exam: Present: normal affect, normal mood, anxious - Skin Skin exam: Present: warm, dry, intact, pallor Course Course Narrative: Patient seen and examined multiple labs obtained Trane EKG daughter and patient both tell me that when she got her pain medication her symptoms resolve and she is not short of breath any longer and does not feel bad refer to previous visits for history behind pain medication Daughter has told us that they had recently stopped her Cardizem by decreasing the dose and then increasing her Coumadin so concerns would be for GI bleeding for the reason and with her taking blood pressure medications many of these will not allow the increasing heart rate but if it is also been a slow gradual loss because last blood work was done was 6 months ago and at that time was mildly anemic this could also be an underlying issue any would not see the tachycardia develop but could have the hypotension when getting up and moving about as result will be transfused given Lasix after each unit iron studies will be done to determine if this is manageable risks R visit this causes increasing weakness which could exacerbate her pain patient though is adamant and worried that she is not getting get her pain medications and she specifically asking for her oxycodone upon presentation to the emergency room stating that this is only thing [employer] or dyspnea by the fact I have explained to her that she is anemic with a hemoglobin of 4.8 Vital Signs Temperature 99.0 F 07/26/17 18:02 Pulse Rate 93 07/26/17 18:02 Respiratory Rate 16 07/26/17 18:02 Blood Pressure 157/80 07/26/17 18:02 O2 Sat by Pulse Oximetry 98 07/26/17 18:02 Temperature 99.0 F 07/26/17 18:02 Pulse Rate 74 07/26/17 19:10 Respiratory Rate 16 07/26/17 19:10 Blood Pressure 158/60 07/26/17 19:10 O2 Sat by Pulse Oximetry 93 07/26/17 19:10 Oxygen Delivery Oxygen Delivery Room Air Shortness of Breath/Dyspnea - [facility] Narrative Medical decision making narrative: Hypotension medication complications anemia anemia metaolic imbalance - Differential Diagnosis Likely: acute exacerbation of chronic obstructive airways disease, congestive heart failure, pneumonia - Medical Records Medical records reviewed: Yes I reviewed the patient's medical records. - Lab Data Lab results reviewed: Yes I reviewed the patient's lab results. Result diagrams: 07/26/17 18:21 07/26/17 18:21 Lab Results 07/26/17 07/26/17 07/26/17 Range/Units 18:21 18:21 18:21 WBC 6.3 (4.3-11.1) K/mcL RBC 2.80 L (3.82-4.97) M/mcL Hgb 4.8 L* (11.5-15.4) g/dL Hct 18.2 L (35.3-44.9) % MCV 65.0 L (83.0-100.0) fL MCH 17.1 L (28.0-33.3) pg MCHC 26.4 L (31.6-35.5) g/dL RDW 18.6 H (11.5-14.5) % Plt Count 276 (140-400) K/mcL MPV 9.3 L (9.4-12.4) fL Immature Gran % 0.3 (0-4) % Seg Neutrophils % 60.6 % Lymphocytes % 23.6 % Monocytes % 12.6 % Eosinophils % 2.6 % Basophils % 0.3 % Neutrophils # 3.8 (1.6-8.9) K/mcL Lymphocytes # 1.5 (0.6-4.6) K/mcL Monocytes # 0.8 (0.0-1.3) K/mcL Eosinophils # 0.2 (0.0-0.6) K/mcL Basophils # 0.0 (0.0-0.2) K/mcL Nucleated RBCs/100 WBC 0.3 H (0) /100 WBC Platelet Estimate Normal (Normal) Large Platelets Present A (Not Present) Polychromasia 1+ A (Not Present) Hypochromasia Present A (Not Present) Anisocytosis 2+ A (Not Present) Microcytosis Present A (Not Present) PT (9.4-12.1) Seconds INR APTT 60.1 H (26.0-36.0) Seconds Sodium 141 (136-145) mEq/L Potassium 3.3 L (3.5-4.5) mEq/L Chloride 105 (98-109) mEq/L Carbon Dioxide 26 (19-29) mEq/L BUN 14 (7-20) mg/dL Creatinine 0.79 (0.57-1.11) mg/dL Est GFR ( Amer) > 60 (> 60) Est GFR (Non-Af Amer) > 60 (> 60) BUN/Creatinine Ratio 18 (6-26) Glucose 103 H (70-99) mg/dL Calculated Osmolality 293 (280-300) Calcium 8.9 (8.6-10.8) mg/dL Total Bilirubin 0.3 (0.2-1.2) mg/dL AST 11 (5-34) Units/L ALT 11 (0-55) Units/L Alkaline Phosphatase 51 (38-126) Units/L Troponin I (0-0.03) ng/mL B-Natriuretic Peptide (0-100) pg/mL Serum Total Protein 5.5 L (6.0-8.3) g/dL Albumin 3.1 L (3.5-5.0) g/dL Globulin 2.4 (2.4-3.5) g/dL Albumin/Globulin Ratio 1.3 (1.1-2.2) Blood Type Antibody Screen Crossmatch 07/26/17 07/26/17 07/26/17 Range/Units 18:21 18:21 18:21 WBC (4.3-11.1) K/mcL RBC (3.82-4.97) M/mcL Hgb (11.5-15.4) g/dL Hct (35.3-44.9) % MCV (83.0-100.0) fL MCH (28.0-33.3) pg MCHC (31.6-35.5) g/dL RDW (11.5-14.5) % Plt Count (140-400) K/mcL MPV (9.4-12.4) fL Immature Gran % (0-4) % Seg Neutrophils % % Lymphocytes % % Monocytes % % Eosinophils % % Basophils % % Neutrophils # (1.6-8.9) K/mcL Lymphocytes # (0.6-4.6) K/mcL Monocytes # (0.0-1.3) K/mcL Eosinophils # (0.0-0.6) K/mcL Basophils # (0.0-0.2) K/mcL Nucleated RBCs/100 WBC (0) /100 WBC Platelet Estimate (Normal) Large Platelets (Not Present) Polychromasia (Not Present) Hypochromasia (Not Present) Anisocytosis (Not Present) Microcytosis (Not Present) PT 140.1 H* (9.4-12.1) Seconds INR 12.3 H* APTT (26.0-36.0) Seconds Sodium (136-145) mEq/L Potassium (3.5-4.5) mEq/L Chloride (98-109) mEq/L Carbon Dioxide (19-29) mEq/L BUN (7-20) mg/dL Creatinine (0.57-1.11) mg/dL Est GFR ( Amer) (> 60) Est GFR (Non-Af Amer) (> 60) BUN/Creatinine Ratio (6-26) Glucose (70-99) mg/dL Calculated Osmolality (280-300) Calcium (8.6-10.8) mg/dL Total Bilirubin (0.2-1.2) mg/dL AST (5-34) Units/L ALT (0-55) Units/L Alkaline Phosphatase (38-126) Units/L Troponin I 0.01 (0-0.03) ng/mL B-Natriuretic Peptide 272 H (0-100) pg/mL Serum Total Protein (6.0-8.3) g/dL Albumin (3.5-5.0) g/dL Globulin (2.4-3.5) g/dL Albumin/Globulin Ratio (1.1-2.2) Blood Type Antibody Screen Crossmatch 07/26/17 Range/Units 18:21 WBC (4.3-11.1) K/mcL RBC (3.82-4.97) M/mcL Hgb (11.5-15.4) g/dL Hct (35.3-44.9) % MCV (83.0-100.0) fL MCH (28.0-33.3) pg MCHC (31.6-35.5) g/dL RDW (11.5-14.5) % Plt Count (140-400) K/mcL MPV (9.4-12.4) fL Immature Gran % (0-4) % Seg Neutrophils % % Lymphocytes % % Monocytes % % Eosinophils % % Basophils % % Neutrophils # (1.6-8.9) K/mcL Lymphocytes # (0.6-4.6) K/mcL Monocytes # (0.0-1.3) K/mcL Eosinophils # (0.0-0.6) K/mcL Basophils # (0.0-0.2) K/mcL Nucleated RBCs/100 WBC (0) /100 WBC Platelet Estimate (Normal) Large Platelets (Not Present) Polychromasia (Not Present) Hypochromasia (Not Present) Anisocytosis (Not Present) Microcytosis (Not Present) PT (9.4-12.1) Seconds INR APTT (26.0-36.0) Seconds Sodium (136-145) mEq/L Potassium (3.5-4.5) mEq/L Chloride (98-109) mEq/L Carbon Dioxide (19-29) mEq/L BUN (7-20) mg/dL Creatinine (0.57-1.11) mg/dL Est GFR ( Amer) (> 60) Est GFR (Non-Af Amer) (> 60) BUN/Creatinine Ratio (6-26) Glucose (70-99) mg/dL Calculated Osmolality (280-300) Calcium (8.6-10.8) mg/dL Total Bilirubin (0.2-1.2) mg/dL AST (5-34) Units/L ALT (0-55) Units/L Alkaline Phosphatase (38-126) Units/L Troponin I (0-0.03) ng/mL B-Natriuretic Peptide (0-100) pg/mL Serum Total Protein (6.0-8.3) g/dL Albumin (3.5-5.0) g/dL Globulin (2.4-3.5) g/dL Albumin/Globulin Ratio (1.1-2.2) Blood Type A POSITIVE Antibody Screen NEGATIVE Crossmatch See Detail - Radiology Data Radiology results reviewed: Yes I reviewed the patient's radiology results. - EKG Data EKG attestation: Yes I reviewed and interpreted this EKG. EKG results narrative: Sinus rhythm rate 72 P-R 158 QRS 98 QTC 364 access Critical Care Time Critical Care Time: Yes Total Critical Care Time: 45 Attestation: Critical care performed: 45 minutes as result of the patient having anemia symptomatic with starting of transfusion to bring her hemoglobin up discussion with family for care treatment management and explained this may be her underlying reasons for her weakness and lightheadedness when she tries to change positions Time is exclusive of separately billable procedures. Time includes: direct patient care, patient reassessment, coordination of patient care, interpretation of data (laboratory data, radiology data, and respiratory data), review of patient's medical records, medical consultation and documentation of patient care. Procedures included in critical care time: Procedures excluded from critical care time:
[2017-07-26 18:29] LABS: Basophils % 0.3 %; Eosinophils # 0.2 K/mcL (0.0-0.6); Eosinophils % 2.6 %; Hematocrit 18.2 % (35.3-44.9); Immature Granulocytes % 0.3 % (0-4); Lymphocytes # 1.5 K/mcL (0.6-4.6); Lymphocytes % 23.6 %; Mean Corpuscular HGB Conc 26.4 g/dL (31.6-35.5); Mean Corpuscular Hemoglobin 17.1 pg (28.0-33.3); Mean Platelet Volume 9.3 fL (9.4-12.4); Monocytes # 0.8 K/mcL (0.0-1.3); Monocytes % 12.6 %; Neutrophils # 3.8 K/mcL (1.6-8.9); Nucleated Red Blood Cells 0.3 /100 WBC (0); Platelet Count 276 K/mcL (140-400); Red Cell Distribution Width 18.6 % (11.5-14.5); Segmented Neutrophils % 60.6 %
[2017-07-26 18:35] LABS: Hemoglobin 4.8 g/dL (11.5-15.4)
[2017-07-26 18:43] LABS: Prothrombin Time 140.1 Seconds (9.4-12.1)
[2017-07-26 18:48] LABS: Alanine Aminotransferase 11 Units/L (0-55); Albumin 3.1 g/dL (3.5-5.0); Albumin/Globulin Ratio 1.3 (1.1-2.2); Alkaline Phosphatase 51 Units/L (38-126); Aspartate Amino Transferase 11 Units/L (5-34); BUN/Creatinine Ratio 18 (6-26); Bilirubin,Total 0.3 mg/dL (0.2-1.2); Blood Urea Nitrogen 14 mg/dL (7-20); Calcium 8.9 mg/dL (8.6-10.8); Carbon Dioxide 26 mEq/L (19-29); Chloride 105 mEq/L (98-109); Globulin 2.4 g/dL (2.4-3.5); Glucose 103 mg/dL (70-99); Osmolality,Calculated 293 (280-300); Potassium 3.3 mEq/L (3.5-4.5); Sodium 141 mEq/L (136-145); Total Protein 5.5 g/dL (6.0-8.3); eGFR For African Americans > 60 (> 60); eGFR For Non-African Americans > 60 (> 60)
[2017-07-26 19:22] LABS: INR 12.3
[2017-07-26 19:31] LABS: Anisocytosis 2+ (Not Present)
[2017-07-26 19:33] LABS: Hypochromasia Present (Not Present)
[2017-07-26 19:34] LABS: Microcytosis Present (Not Present)
[2017-07-26 19:35] LABS: Polychromasia 1+ (Not Present)
[2017-07-26 19:38] LABS: Large Platelets Present (Not Present); Platelet Estimate Normal (Normal)
[2017-07-26] MEDS ORDERED: *HR* Phytonadione 10 MG/ML AMPUL SQ ONE (19:45)
[2017-07-26] MEDS ORDERED: Naloxone 0.4 MG/ML INJ IVP PRN (20:07)
[2017-07-26 20:23] LABS: % Iron Saturation 3 % (15-50); Iron 12 mcg/dL (50-170); Transferrin 312 mg/dL (180-382)
[2017-07-26] MEDS: *HR* OxyCODONE/APAP 5/325 TABLET PO SCH (21:41)
[2017-07-26] MEDS: Diltiazem CD (24hr) 180 MG CAPSULE PO SCH (21:43)
[2017-07-27] MEDS: Furosemide 20 MG/2 ML VIAL IVP SCH ×3 (01:51→08:50)
[2017-07-27] MEDS: *HR* OxyCODONE/APAP 5/325 TABLET PO SCH ×4 (02:59→22:40)
[2017-07-27] MEDS ORDERED: [UNRECOGNIZED DRUG - OTHER] TP PRN ×2 (04:42→05:00)
[2017-07-27] MEDS: Cholecalciferol (D-3) 1,000 UNIT TABLET PO SCH (08:42)
[2017-07-27] MEDS: Gabapentin 400 MG CAPSULE PO SCH ×3 (08:43→20:31)
[2017-07-27] MEDS: Diltiazem CD (24hr) 180 MG CAPSULE PO SCH ×2 (08:43→20:31)
[2017-07-27] MEDS ORDERED: PROGESTERONE 30 MG PO SCH (09:00)
[2017-07-27] MEDS ORDERED: *HR* Dextrose 50 % in Water (Syg) 50 ML SYRINGE IVP PRN (09:42)
[2017-07-27] MEDS ORDERED: D5% in Water 1,000 ML IVC PRN (09:42)
[2017-07-27] MEDS ORDERED: Dextrose Gel 15 GM PO PRN ×2 (09:42)
[2017-07-27 10:40] LABS: Hematocrit 27.5 % (35.3-44.9); Mean Corpuscular HGB Conc 29.5 g/dL (31.6-35.5); Mean Corpuscular Hemoglobin 21.3 pg (28.0-33.3); Mean Platelet Volume 9.7 fL (9.4-12.4); Platelet Count 265 K/mcL (140-400); Red Blood Count 3.81 M/mcL (3.82-4.97); Red Cell Distribution Width 22.5 % (11.5-14.5)
[2017-07-27 10:49] LABS: Hemoglobin 8.1 g/dL (11.5-15.4); Mean Corpuscular Volume 72.2 fL (83.0-100.0)
[2017-07-27 11:01] LABS: Activated Partial Thrombo Time 63.2 Seconds (26.0-36.0)
[2017-07-27 11:15] LABS: Prothrombin Time 119.7 Seconds (9.4-12.1)
[2017-07-27 11:17] LABS: INR > 10.0
[2017-07-27] MEDS ORDERED: *HR* Phytonadione 5 MG TABLET PO ONE (12:02)
[2017-07-27] MEDS ORDERED: IRON DEXTRAN COMPLEX IVPB ONE ×2 (12:03→16:00)
[2017-07-27] MEDS ORDERED: SODIUM CHLORIDE 0.9% IVPB ONE ×2 (12:03→16:00)
--- NOTE | 2017-07-27 12:07 | Internal Med History&Physical ---
Date of Encounter: 07/27/17 Time of Encounter: 11:40 Assessment and Plan (1) Anemia Current visit: Yes Status: Acute She has been given 3 units blood transfusion. I will give IV iron dextran since she has iron depletion. Qualifiers: Anemia type: iron deficiency Iron deficiency anemia type: chronic blood loss Qualified Code(s): D50.0 - Iron deficiency anemia secondary to blood loss (chronic) (2) Hypokalemia Current visit: Yes Status: Acute We will give supplemental potassium. (3) DM type 2 (diabetes mellitus, type 2) Current visit: Yes Status: Acute We will check hemoglobin A1c and do Accu-Cheks with SSI. Qualifiers: Diabetes mellitus complication status: without complication Diabetes mellitus alf insulin use: without assistant terminal manager use Qualified Code(s): E11.9 - Type 2 diabetes mellitus without complications (4) Chest pain Current visit: No Status: Acute Improved. Regadenoson test one year ago was unremarkable for ischemia. We will continue to monitor. Qualifiers: Chest pain type: precordial pain Qualified Code(s): R07.2 - Precordial pain (5) Hypertension Current visit: No Status: Chronic Continue Cardizem and monitor blood pressure. Qualifiers: Hypertension type: essential hypertension Qualified Code(s): I10 - Essential (primary) hypertension (6) Hypothyroidism Current visit: No Status: Chronic TSH was 0.77 on 03/10/2017. Continue present dose Synthroid Qualifiers: Hypothyroidism type: unspecified Qualified Code(s): E03.9 - Hypothyroidism , unspecified Internal Medicine - H&P: HPI Chief complaint: Dyspnea and weakness Admitted From: Home Plans for Post Hospital Care: Home History of present illness: Ms. Edmonds is a 87 year old female who came to emergency room complaining of increasing dyspnea and weakness over the past 2 weeks with significant worsening in the past 2 days. She called her PCP Dr. Woodward's office on July 23 and was instructed to decrease Cardizem to daily from twice a day. Her Coumadin dose was increased to 5 mg daily. She had intermittent discomfort in her chest that she describes as "heaviness". She came to emergency room and was evaluated and found to have hemoglobin significantly low at 4.8. INR was 12.3 with pro time 140.1 seconds. She was admitted to [facility] floor for ongoing care needs. She has received 3 units of blood transfusion since arriving at emergency room. She states her chest discomfort has improved. She still feels weak overall. Past Med Surg Social Fam HX - Past Medical History Medical history: cancer, DVT, diabetes, GERD, hyperlipidemia, hypertension, thyroid disease, other Psychiatric history: anxiety, depression - Past Surgical History Surgical History: appendectomy, cataract, hysterectomy, knee replacement, thyroidectomy, other - Social History Smoking Status: Never smoker Smokeless Tobacco Status: No Alcohol use: none Drug use: none Internal Medicine - H&P: Meds Diltiazem CD (24hr) [Cardizem CD] 180 mg PO DAILY 04/24/15 [History] Omeprazole [PriLOSEC] 40 mg PO DAILY 04/24/15 [History] Simvastatin [Zocor] 40 mg PO HS 04/24/15 [History] Furosemide [Lasix] 20 mg PO DAILY 06/28/15 [History] Warfarin [Coumadin] 5 mg PO 1800 06/28/15 [History] Cholecalciferol (D-3) [Vitamin D] 1,000 unit PO DAILY 07/26/17 [History] Gabapentin [Neurontin] 800 mg PO TID 07/26/17 [History] Levothyroxine [Synthroid] 75 mcg PO DAILY 07/26/17 [History] Pioglitazone [Actos] 30 mg PO 0800 07/27/17 [History] 3 Allergy/AdvReac Type Severity Reaction Status Date / Time clarithromycin [From Biaxin] Allergy Hives Verified 07/13/17 16:14 Iodinated Contrast- Oral and Allergy Hives Verified 07/13/17 16:14 IV Dye [Iodinated Contrast Media - IV Dye] metoclopramide Allergy Difficulty Verified 07/13/17 16:14 Breathing Penicillins Allergy Hives Verified 07/13/17 16:14 phenazopyridine Allergy Rash Verified 07/13/17 16:14 [From Pyridium] Sulfa (Sulfonamide Allergy See Verified 07/13/17 16:14 Antibiotics) Comments sulfamethoxazole Allergy Hives Verified 07/13/17 16:14 [From Bactrim] trimethoprim [From Bactrim] Allergy Hives Verified 07/13/17 16:14 All Systems PM: A 10-system review of systems was performed and is negative for pertinent findings except as documented above in the HPI. Review of systems: Review of systems from the February [address] [facility] hospitalization reviewed and revised as below. Gen.: Her weight has decreased from 7.685 kg on 03/11/2017 to 80.966 kg today. Cardiovascular: She has hypertension. 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 She has not had pulmonary embolism. She has not had KS or heart failure. She had an echocardiogram 06/05/2016 which showed LVEF of 60% with mild diastolic dysfunction reported although the E/A ratio was 0.9. There was mild AI, moderate MR, and mild TR. There was LAE at 4.30 cm. She had a stress test 07/2016 which showed no evidence for ischemia on EKG or perfusion imaging. Respiratory: She is a lifelong nonsmoker and has no known chronic lung disease GI: She has no known disorder of her liver gallbladder or exocrine pancreas. She reports colonoscopy approximately 2011 was unremarkable. : She denies hematuria dysuria or kidney stones Neurologic: No history of large distribution strokes or seizures Endocrine: She has DM 2 for many years. She had thyroid cancer several years ago and has been treated with resultant hypothyroidism. She has hyperlipidemia. Hematology/oncology: She had thyroid cancer as mentioned but no other internal malignancies. She had anemia in the past and received iron dextran infusions. 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 She had osteopenia on DEXA scan January 2009. She has had bilateral TKR. - Constitutional Vitals: Temp Pulse Resp BP Pulse Ox 98.4 F 71 18 117/52 97 07/27/17 10:00 07/27/17 10:00 07/27/17 10:00 07/27/17 10:00 07/27/17 10:00 Exam: Gen.: She is a well-developed well-nourished female lying in bed who appears in no acute distress at present time HEENT: Head is atraumatic and normocephalic. Eyes: EOMI. There is no scleral icterus. Mouth: Mucosa is moist. Neck supple and nontender. There is no thyromegaly or adenopathy noted. Heart: Regular without murmurs gallops or ectopics Lungs: No wheezes or crackles are heard. Back: She has dorsal kyphosis. There is no flank tenderness. Chest: She has mild tenderness in her left costosternal joint stating "that is the pain" on light compression. Abdomen: Soft and nontender. No masses or guarding are noted. Extremities: There is no cyanosis edema or clubbing noted. Dorsalis pedis and posttibial pulses are trace palpable bilaterally. Her feet are warm to touch. She has DJD changes of her hands and feet Neurologic: Mental status: She is talkative and a good historian. Cranial nerves: Smile is symmetric. Forehead wrinkles bilaterally. Tongue protrudes midline. EOMI. Motor: There is no pronator drift. Cerebellar: Finger to nose is intact bilaterally. Skin: Warm and dry Internal Med - H&P Results - Labs CBC & Chem 7: 07/27/17 10:28 07/26/17 18:21 Labs: Short CBC 07/27/17 Range/Units 10:28 WBC 7.4 (4.3-11.1) K/mcL Hgb 8.1 L D (11.5-15.4) g/dL Hct 27.5 L (35.3-44.9) % Plt Count 265 (140-400) K/mcL
[2017-07-27] MEDS: Insulin LISPRO 300 UNITS/3 ML VIAL SQ SCH ×2 (12:19→17:13)
[2017-07-27] MEDS: *HR* Pioglitazone 15 MG TABLET PO SCH (12:20)
--- NOTE | 2017-07-27 16:44 | Electrocardiograph Report ---
[place] [id number] Test Date: 2017-07-26 Pat Name: Yoli Edmonds Department: [id number] Room: [facility] Gender: F Block Layer: : 1930 Requested By: Comfort Ruvalcaba Order Number: [id number] Reading MD: Geraldine Ash Measurements Intervals [place] Rate: 72 P: 31 [place]: 158 QRS: -27 QRSD: 98 T: 15 QT: 364 QTc: 389 Interpretive Statements SINUS RHYTHM BORDERLINE LEFT AXIS DEVIATION MINIMAL ST DEPRESSION Electronically Signed On 07-27-2017 16:43:02 EST by Geraldine Ash
[2017-07-27] MEDS ORDERED: Insulin LISPRO 300 UNITS/3 ML VIAL SQ SCH (21:00)
[2017-07-28] MEDS: *HR* OxyCODONE/APAP 5/325 TABLET PO SCH ×2 (05:41→09:31)
[2017-07-28 06:04] LABS: Basophils # 0.1 K/mcL (0.0-0.2); Basophils % 1.1 %; Eosinophils # 0.3 K/mcL (0.0-0.6); Eosinophils % 4.7 %; Hematocrit 25.5 % (35.3-44.9); Hemoglobin 7.5 g/dL (11.5-15.4); Immature Granulocytes % 0.9 % (0-4); Lymphocytes # 1.2 K/mcL (0.6-4.6); Lymphocytes % 22.5 %; Mean Corpuscular HGB Conc 29.4 g/dL (31.6-35.5); Mean Corpuscular Hemoglobin 21.3 pg (28.0-33.3); Mean Corpuscular Volume 72.4 fL (83.0-100.0); Mean Platelet Volume 9.2 fL (9.4-12.4); Monocytes # 0.7 K/mcL (0.0-1.3); Nucleated Red Blood Cells 0.6 /100 WBC (0); Platelet Count 237 K/mcL (140-400); Red Blood Count 3.52 M/mcL (3.82-4.97); Red Cell Distribution Width 23.2 % (11.5-14.5); Segmented Neutrophils % 56.8 %
[2017-07-28 06:12] LABS: INR 2.6
[2017-07-28 06:24] VITALS: BP 148/70
[2017-07-28 06:26] LABS: Prothrombin Time 28.8 Seconds (9.4-12.1)
[2017-07-28 06:44] LABS: Anisocytosis 2+ (Not Present); Platelet Estimate Normal (Normal); Polychromasia 1+ (Not Present)
[2017-07-28 06:45] LABS: Hypochromasia Present (Not Present); Large Platelets Present (Not Present)
--- NOTE | 2017-07-28 09:28 | Discharge Summary ---
Date of Encounter: 07/28/17 Time of Encounter: 09:10 - Discharge Diagnosis (1) Anemia Priority: Primary Status: Acute Qualifiers: Anemia type: iron deficiency Iron deficiency anemia type: chronic blood loss Qualified Code(s): D50.0 - Iron deficiency anemia secondary to blood loss (chronic) (2) Hypokalemia Priority: Secondary Status: Acute (3) DM type 2 (diabetes mellitus, type 2) Priority: Secondary Status: Acute Qualifiers: Diabetes mellitus complication status: without complication Diabetes mellitus joint terminal attack controller insulin use: without joint terminal attack controller use Qualified Code(s): E11.9 - Type 2 diabetes mellitus without complications (4) Chest pain Priority: Secondary Status: Resolved Qualifiers: Chest pain type: precordial pain Qualified Code(s): R07.2 - Precordial pain (5) Hypertension Priority: Secondary Status: Chronic Qualifiers: Hypertension type: essential hypertension Qualified Code(s): I10 - Essential (primary) hypertension (6) Hypothyroidism Priority: Secondary Status: Chronic Qualifiers: Hypothyroidism type: unspecified Qualified Code(s): E03.9 - Hypothyroidism , unspecified - Discharge Medications Prescriptions: Potassium Chloride 10 meq PO DAILY #30 tab.er.prt Home Medications: Diltiazem CD (24hr) [Cardizem CD] 180 mg PO DAILY 04/24/15 [History] Omeprazole [PriLOSEC] 40 mg PO DAILY 04/24/15 [History] Simvastatin [Zocor] 40 mg PO HS 04/24/15 [History] Furosemide [Lasix] 20 mg PO DAILY 06/28/15 [History] Cholecalciferol (D-3) [Vitamin D] 1,000 unit PO DAILY 07/26/17 [History] Gabapentin [Neurontin] 800 mg PO TID 07/26/17 [History] Levothyroxine [Synthroid] 75 mcg PO DAILY 07/26/17 [History] Pioglitazone [Actos] 30 mg PO 0800 07/27/17 [History] Potassium Chloride 10 meq PO DAILY #30 tab.er.prt 07/28/17 [Rx] Warfarin [Coumadin] 2 mg PO 1800 365 Days #0 07/28/17 [Rx] Allergies/Adverse Reactions: 3 Allergy/AdvReac Type Severity Reaction Status Date / Time clarithromycin [From Biaxin] Allergy Hives Verified 10/23/17 16:14 Iodinated Contrast- Oral and Allergy Hives Verified 07/13/17 16:14 IV Dye [Iodinated Contrast Media - IV Dye] metoclopramide Allergy Difficulty Verified 07/13/17 16:14 Breathing Penicillins Allergy Hives Verified 07/13/17 16:14 phenazopyridine Allergy Rash Verified 07/13/17 16:14 [From Pyridium] Sulfa (Sulfonamide Allergy See Verified 07/13/17 16:14 Antibiotics) Comments sulfamethoxazole Allergy Hives Verified 07/13/17 16:14 [From Bactrim] trimethoprim [From Bactrim] Allergy Hives Verified 07/13/17 16:14 Date of admission: 07/27/17 12:31 Primary care physician: Marquis Woodward DO - Patient Status Disposition: Home, Self-Care Condition: Fair Functional capacity at discharge: uses cane/walker Overall status at discharge: patient is progressing back to baseline - Discharge Instructions Follow Up With: Marquis Woodward DO [Primary Care Provider] - 1 week - Diet and Activity Activity: resume usual activities as tolerated Diet: advance to your usual diet Hospital course: Ms. Edmonds is a 87 year old female who came to emergency room complaining of increasing dyspnea and weakness over the past 2 weeks with significant worsening in the past 2 days. She called her PCP Dr. Woodward's office on July 23 and was instructed to decrease Cardizem to daily from twice a day. Her Coumadin dose was increased to 5 mg daily. She had intermittent discomfort in her chest that she describes as "heaviness". She came to emergency room and was evaluated and found to have hemoglobin significantly low at 4.8. INR was 12.3 with pro time 140.1 seconds. She was admitted to [facility] for ongoing care needs. Initial orders were written by the emergency room physician. I saw her on July 27 and performed the history and physical. She was given 3 units blood transfusion. She was also given IV iron and dextran. Her hemoglobin dulce to 8.1 on July 27 but had decreased slightly to 7.5 on July 28. Her Coumadin was held and she was given IV and oral vitamin K. Her INR returned to therapeutic range at 2.6 by July 28. She will resume Coumadin at an effective dose of 2.5 mg daily (2 mg every other day/3 mg every other day). Supplemental potassium was given and will be continued at discharge. Hemoglobin A1c was ordered with results pending at time of discharge. On July 28 she felt stable for discharge home. She will follow with her PCP Dr. Woodward within 1 week. - Time Spent with Patient Total time spent providing and/or coordinating discharge services: - Constitutional Vitals: Temp Pulse Resp BP Pulse Ox 98.9 F 54 16 148/70 94 07/28/17 06:21 07/28/17 06:21 07/28/17 06:21 07/28/17 06:21 07/28/17 06:21
[2017-07-28] MEDS: *HR* Pioglitazone 15 MG TABLET PO SCH (09:39)
[2017-07-28] MEDS: Diltiazem CD (24hr) 180 MG CAPSULE PO SCH (09:39)
[2017-07-28] MEDS: Cholecalciferol (D-3) 1,000 UNIT TABLET PO SCH (09:39)
[2017-07-28] MEDS: Gabapentin 400 MG CAPSULE PO SCH (09:40)
[2017-07-28 09:50] LABS: Hemoglobin A1C 5.4 %
== END 2017-07-28 11:25 | disposition home or self-care (01) | DRG 812 ==
LOC: INPPIK 18:01 → EMEROOPIK 18:01 → INPPIK 20:06
PROVIDERS: ADMIT Internal Medicine; ATTEND Internal Medicine

== ENCOUNTER 2019-09-12 21:34 | Observation (INO) ==
[2019-09-12] MEDS ORDERED: Famotidine 20 MG/2 ML VIAL IVP ONE (21:39)
[2019-09-12] MEDS ORDERED: methylPREDNISolone 125 MG/2 ML VIAL IVP ONE (21:39)
[2019-09-12 23:15] LABS: Basophils % 0.2 %; Eosinophils # 0.2 K/mcL (0.0-0.6); Eosinophils % 3.3 %; Hematocrit 42.2 % (35.3-44.9); Hemoglobin 13.8 g/dL (11.5-15.4); Immature Granulocytes % 0.5 % (0-4); Lymphocytes # 1.3 K/mcL (0.6-4.6); Lymphocytes % 23.3 %; Mean Corpuscular HGB Conc 32.7 g/dL (31.6-35.5); Mean Corpuscular Hemoglobin 30.7 pg (28.0-33.3); Mean Corpuscular Volume 93.8 fL (83.0-100.0); Mean Platelet Volume 10.5 fL (9.4-12.4); Monocytes # 0.6 K/mcL (0.0-1.3); Neutrophils # 3.5 K/mcL (1.6-8.9); Platelet Count 195 K/mcL (140-400); Red Cell Distribution Width 13.4 % (11.5-14.5); Segmented Neutrophils % 61.7 %; White Blood Count 5.7 K/mcL (4.3-11.1)
[2019-09-12 23:35] LABS: BUN/Creatinine Ratio 26 (6-26); Blood Urea Nitrogen 19 mg/dL (8-23); Calcium 10.3 mg/dL (8.6-10.3); Carbon Dioxide 28 mEq/L (23-29); Chloride 102 mEq/L (98-107); Glucose 119 mg/dL (70-105); Osmolality,Calculated 287 (280-300); Sodium 137 mEq/L (136-145); eGFR For African Americans > 60 (> 60); eGFR For Non-African Americans > 60 (> 60)
[2019-09-12] MEDS ORDERED: Ibuprofen 400 MG TABLET PO PRN (23:50)
[2019-09-12] MEDS ORDERED: Acetaminophen 325 MG TABLET PO PRN (23:50)
[2019-09-12] MEDS ORDERED: Ondansetron 4 MG/2 ML VIAL IVP PRN (23:50)
[2019-09-12] MEDS ORDERED: Naloxone 0.4 MG/ML INJ IVP PRN (23:50)
[2019-09-12] MEDS ORDERED: MethylPREDNISolone 40 MG/ML VIAL IVP SCH (23:50)
[2019-09-13] MEDS ORDERED: Diltiazem CD (24hr) 240 MG CAPSULE PO SCH (00:30)
[2019-09-13] MEDS: Gabapentin 400 MG CAPSULE PO SCH ×2 (00:59→09:34)
[2019-09-13] MEDS: Apixaban 5 MG TABLET PO SCH ×2 (00:59→09:34)
[2019-09-13] MEDS: MethylPREDNISolone 40 MG/ML VIAL IVP SCH ×2 (06:44→11:38)
[2019-09-13 06:53] VITALS: BP 165/90
[2019-09-13] MEDS ORDERED: Ascorbic Acid 500 MG TABLET PO SCH (07:30)
[2019-09-13] MEDS ORDERED: Furosemide 40 MG TABLET PO SCH (09:00)
[2019-09-13] MEDS ORDERED: Cholecalciferol (D-3) 1,000 UNIT (25MCG) TABLET PO SCH (09:00)
[2019-09-13] MEDS ORDERED: NON-FORMULARY MEDICATION 1 EACH EACH (Nitrofurantoin Macrocrystal [Nitrofurantoin] 100 MG) PO SCH (09:00)
[2019-09-13] MEDS ORDERED: cephALEXin 500 MG CAPSULE PO SCH (10:30)
== END 2019-09-13 15:09 | disposition home or self-care (01) ==
LOC: INPPIK 21:34 → EMEROOPIK 21:34 → INPPIK 23:37
PROVIDERS: ADMIT Family Medicine; ATTEND Family Medicine

== ENCOUNTER 2019-11-13 16:09 | Inpatient (IN) ==
[2019-11-13 17:11] LABS: Basophils % 0.2 %; Eosinophils # 0.1 K/mcL (0.0-0.6); Eosinophils % 1.4 %; Hematocrit 38.3 % (35.3-44.9); Immature Granulocytes % 0.2 % (0-4); Lymphocytes # 1.5 K/mcL (0.6-4.6); Lymphocytes % 18.1 %; Mean Corpuscular HGB Conc 33.9 g/dL (31.6-35.5); Mean Corpuscular Hemoglobin 29.9 pg (28.0-33.3); Mean Platelet Volume 9.4 fL (9.4-12.4); Monocytes # 0.9 K/mcL (0.0-1.3); Neutrophils # 5.5 K/mcL (1.6-8.9); Platelet Count 185 K/mcL (140-400); Red Blood Count 4.35 M/mcL (3.82-4.97); Red Cell Distribution Width 12.7 % (11.5-14.5); Segmented Neutrophils % 69.1 %
[2019-11-13 17:20] LABS: INR 1.4; Prothrombin Time 16.3 Seconds (9.4-12.1)
[2019-11-13 17:32] LABS: Alanine Aminotransferase 10 Units/L (7-52); Albumin 3.7 g/dL (3.5-5.7); Albumin/Globulin Ratio 1.5 (1.1-2.2); Alkaline Phosphatase 110 Units/L (34-104); Aspartate Amino Transferase 14 Units/L (13-39); BUN/Creatinine Ratio 13 (6-26); Bilirubin,Total 0.6 mg/dL (0.3-1.0); Blood Urea Nitrogen 8 mg/dL (8-23); Calcium 8.7 mg/dL (8.6-10.3); Carbon Dioxide 29 mEq/L (23-29); Chloride 89 mEq/L (98-107); Globulin 2.4 g/dL (2.4-3.5); Glucose 99 mg/dL (70-105); Osmolality,Calculated 260 (280-300); Potassium 2.9 mEq/L (3.5-5.1); Sodium 126 mEq/L (136-145); Total Protein 6.1 g/dL (6.4-8.9); eGFR For African Americans > 60 (> 60); eGFR For Non-African Americans > 60 (> 60)
[2019-11-13 18:36] LABS: Bilirubin,Urine Negative (Negative); Blood,Urine Small (Negative); Clarity,Urine Slightly Cloudy (Clear); Color,Urine Yellow (Yellow); Glucose,Urine (UA) Normal (Normal); Ketones,Urine Negative (Negative); Leukocyte Esterase,Urine Moderate (Negative); Nitrite,Urine Negative (Negative); Protein,Urine Negative (Neg-Trace); Urobilinogen,Urine Normal (Normal)
[2019-11-13 18:45] LABS: Bacteria,Urine Moderate per hpf (None-Few); Granular Casts,Urine Few per lpf (None Seen); Hyaline Casts,Urine Few per lpf (None-Few); RBC,Urine 0-3 per hpf (0-3); Squamous Epithelial Cell,Urine Few per lpf (None-Few)
[2019-11-13] MEDS ORDERED: cefTRIAXone 1,000 MG in 0.9 % Sodium Chloride Mini Bag 100 ML IVPB ONE (19:02)
[2019-11-13] MEDS ORDERED: 0.9 % Sodium Chloride 1,000 ML IV ONE (19:02)
[2019-11-13] MEDS ORDERED: Ondansetron 4 MG/2 ML VIAL IVP PRN (19:03)
[2019-11-13] MEDS ORDERED: Potassium Chloride Elixir 20 MEQ/15 ML UDC PO ONE (19:03)
[2019-11-13] MEDS ORDERED: Albuterol 2.5 MG/3 ML NEBULIZER IH PRN (19:20)
[2019-11-13] MEDS: 0.9 % Sodium Chloride 1,000 ML IVC SCH (22:22)
[2019-11-14 03:08] LABS: Basophils % 0.4 %; Eosinophils # 0.1 K/mcL (0.0-0.6); Eosinophils % 1.2 %; Hematocrit 37.7 % (35.3-44.9); Hemoglobin 12.9 g/dL (11.5-15.4); Immature Granulocytes % 0.4 % (0-4); Lymphocytes # 1.5 K/mcL (0.6-4.6); Lymphocytes % 25.9 %; Mean Corpuscular HGB Conc 34.2 g/dL (31.6-35.5); Mean Corpuscular Hemoglobin 30.3 pg (28.0-33.3); Mean Corpuscular Volume 88.5 fL (83.0-100.0); Mean Platelet Volume 9.9 fL (9.4-12.4); Monocytes # 0.7 K/mcL (0.0-1.3); Monocytes % 11.6 %; Neutrophils # 3.4 K/mcL (1.6-8.9); Platelet Count 186 K/mcL (140-400); Red Blood Count 4.26 M/mcL (3.82-4.97); Red Cell Distribution Width 12.6 % (11.5-14.5); Segmented Neutrophils % 60.5 %; White Blood Count 5.7 K/mcL (4.3-11.1)
[2019-11-14 03:24] LABS: BUN/Creatinine Ratio 12 (6-26); Blood Urea Nitrogen 6 mg/dL (8-23); Calcium 8.6 mg/dL (8.6-10.3); Carbon Dioxide 26 mEq/L (23-29); Chloride 100 mEq/L (98-107); Glucose 108 mg/dL (70-105); Osmolality,Calculated 272 (280-300); Potassium 3.9 mEq/L (3.5-5.1); Sodium 132 mEq/L (136-145); eGFR For African Americans > 60 (> 60); eGFR For Non-African Americans > 60 (> 60)
[2019-11-14] MEDS: Doxycycline 100 MG in 0.9 % Sodium Chloride Mini Bag 100 ML IVPB SCH ×2 (05:47→17:28)
[2019-11-14] MEDS: 0.9 % Sodium Chloride 1,000 ML IVC SCH (08:22)
[2019-11-14] MEDS: Ascorbic Acid 500 MG TABLET PO SCH (10:03)
[2019-11-14] MEDS: Gabapentin 400 MG CAPSULE PO SCH ×3 (10:03→20:26)
[2019-11-14] MEDS: Cholecalciferol (D-3) 1,000 UNIT (25MCG) TABLET PO SCH (10:04)
[2019-11-14] MEDS: DilTIAZem CD (24hr) 240 MG CAP.ER.24H PO SCH (10:04)
[2019-11-14] MEDS: Furosemide 40 MG TABLET PO SCH (10:04)
[2019-11-14] MEDS: Apixaban 5 MG TABLET PO SCH ×2 (10:04→20:26)
[2019-11-14 11:20] LABS: Basophils % 0.6 %; Eosinophils # 0.1 K/mcL (0.0-0.6); Eosinophils % 1.5 %; Hemoglobin 13.3 g/dL (11.5-15.4); Immature Granulocytes % 0.9 % (0-4); Lymphocytes # 1.1 K/mcL (0.6-4.6); Lymphocytes % 20.1 %; Mean Corpuscular HGB Conc 34.1 g/dL (31.6-35.5); Mean Corpuscular Hemoglobin 30.4 pg (28.0-33.3); Mean Platelet Volume 10.1 fL (9.4-12.4); Monocytes # 0.7 K/mcL (0.0-1.3); Monocytes % 12.8 %; Neutrophils # 3.4 K/mcL (1.6-8.9); Platelet Count 204 K/mcL (140-400); Red Blood Count 4.38 M/mcL (3.82-4.97); Red Cell Distribution Width 12.7 % (11.5-14.5); Segmented Neutrophils % 64.1 %; White Blood Count 5.3 K/mcL (4.3-11.1)
[2019-11-14] MEDS: cefTRIAXone 1,000 MG in Water for inj. (sterile) 10 ML IVPB SCH (17:27)
[2019-11-15] MEDS: Ascorbic Acid 500 MG TABLET PO SCH (05:43)
[2019-11-15] MEDS: Doxycycline 100 MG in 0.9 % Sodium Chloride Mini Bag 100 ML IVPB SCH ×2 (05:44→18:33)
[2019-11-15 07:47] LABS: Basophils # 0.1 K/mcL (0.0-0.2); Basophils % 1.2 %; Eosinophils # 0.2 K/mcL (0.0-0.6); Eosinophils % 3.6 %; Hematocrit 41.8 % (35.3-44.9); Hemoglobin 13.7 g/dL (11.5-15.4); Immature Granulocytes % 1.2 % (0-4); Lymphocytes # 1.7 K/mcL (0.6-4.6); Lymphocytes % 28.7 %; Mean Corpuscular HGB Conc 32.8 g/dL (31.6-35.5); Mean Corpuscular Volume 91.5 fL (83.0-100.0); Mean Platelet Volume 9.8 fL (9.4-12.4); Monocytes # 0.8 K/mcL (0.0-1.3); Monocytes % 13.8 %; Platelet Count 232 K/mcL (140-400); Red Blood Count 4.57 M/mcL (3.82-4.97); Red Cell Distribution Width 12.8 % (11.5-14.5); Segmented Neutrophils % 51.5 %; White Blood Count 5.9 K/mcL (4.3-11.1)
[2019-11-15 08:02] LABS: BUN/Creatinine Ratio 15 (6-26); Blood Urea Nitrogen 9 mg/dL (8-23); Calcium 9.1 mg/dL (8.6-10.3); Carbon Dioxide 27 mEq/L (23-29); Chloride 101 mEq/L (98-107); Glucose 104 mg/dL (70-105); Osmolality,Calculated 285 (280-300); Potassium 3.1 mEq/L (3.5-5.1); Sodium 138 mEq/L (136-145); eGFR For African Americans > 60 (> 60); eGFR For Non-African Americans > 60 (> 60)
[2019-11-15] MEDS: Apixaban 5 MG TABLET PO SCH ×2 (10:07→20:19)
[2019-11-15] MEDS: Cholecalciferol (D-3) 1,000 UNIT (25MCG) TABLET PO SCH (10:08)
[2019-11-15] MEDS: Gabapentin 400 MG CAPSULE PO SCH ×3 (10:09→20:19)
[2019-11-15] MEDS: DilTIAZem CD (24hr) 240 MG CAP.ER.24H PO SCH (10:13)
[2019-11-15] MEDS: Furosemide 40 MG TABLET PO SCH (10:13)
[2019-11-15] MEDS: cefTRIAXone 1,000 MG in Water for inj. (sterile) 10 ML IVPB SCH (18:34)
[2019-11-16] MEDS: Doxycycline 100 MG in 0.9 % Sodium Chloride Mini Bag 100 ML IVPB SCH (05:07)
[2019-11-16] MEDS: Ascorbic Acid 500 MG TABLET PO SCH (06:14)
[2019-11-16 06:22] LABS: Basophils # 0.1 K/mcL (0.0-0.2); Basophils % 1.1 %; Eosinophils # 0.4 K/mcL (0.0-0.6); Eosinophils % 5.5 %; Hematocrit 38.2 % (35.3-44.9); Hemoglobin 12.8 g/dL (11.5-15.4); Immature Granulocytes % 1.8 % (0-4); Lymphocytes # 1.8 K/mcL (0.6-4.6); Lymphocytes % 27.7 %; Mean Corpuscular HGB Conc 33.5 g/dL (31.6-35.5); Mean Corpuscular Volume 89.5 fL (83.0-100.0); Mean Platelet Volume 9.6 fL (9.4-12.4); Monocytes # 0.9 K/mcL (0.0-1.3); Monocytes % 13.1 %; Neutrophils # 3.3 K/mcL (1.6-8.9); Platelet Count 245 K/mcL (140-400); Red Blood Count 4.27 M/mcL (3.82-4.97); Red Cell Distribution Width 12.8 % (11.5-14.5); Segmented Neutrophils % 50.8 %; White Blood Count 6.6 K/mcL (4.3-11.1)
[2019-11-16 06:45] LABS: BUN/Creatinine Ratio 26 (6-26); Blood Urea Nitrogen 14 mg/dL (8-23); Calcium 8.9 mg/dL (8.6-10.3); Carbon Dioxide 29 mEq/L (23-29); Chloride 103 mEq/L (98-107); Glucose 105 mg/dL (70-105); Osmolality,Calculated 289 (280-300); Potassium 3.2 mEq/L (3.5-5.1); Sodium 139 mEq/L (136-145); eGFR For African Americans > 60 (> 60); eGFR For Non-African Americans > 60 (> 60)
[2019-11-16] MEDS: Gabapentin 400 MG CAPSULE PO SCH (09:47)
[2019-11-16] MEDS: Furosemide 40 MG TABLET PO SCH (09:47)
[2019-11-16] MEDS: Apixaban 5 MG TABLET PO SCH (09:48)
[2019-11-16] MEDS: Cholecalciferol (D-3) 1,000 UNIT (25MCG) TABLET PO SCH (09:48)
[2019-11-16] MEDS: DilTIAZem CD (24hr) 240 MG CAP.ER.24H PO SCH (09:48)
[2019-11-16 10:08] VITALS: BP 169/75
== END 2019-11-16 14:07 | disposition home health service (06) | DRG 194 ==
LOC: EMEROOPIK 16:09 → INPPIK 16:09
PROVIDERS: ADMIT Family Medicine; ATTEND Family Medicine